=== PATIENT | male | born 1960 | race Caucasian/White ===

== ENCOUNTER 2016-10-17 17:01 | Outpatient (CLI) | payer MEDICARE, OTHER | END 2016-10-17 17:02 | disposition home or self-care (01) | DX: R06.2 Wheezing (principal); R06.02 Shortness of breath ==

== ENCOUNTER 2018-12-18 16:40 | Outpatient (CLI) | payer MEDICARE, OTHER | END 2018-12-18 16:41 | disposition critical access hospital (66) | LOC: EMS 16:40 | PROVIDERS: ATTEND Surgery | DX: R45.851 Suicidal ideations (principal) | CPT/HCPCS: A0425; A0429 ==

== ENCOUNTER 2018-12-18 17:14 | Emergency (ER) | payer MEDICARE, OTHER ==
[2018-12-18 17:29] LABS: BASOPHILS # (AUTO) 0.1 10^3/uL (0.0-0.1); BASOPHILS % (AUTO) 0.7 %; EOSINOPHILS % (AUTO) 0.4 %; HGB - HEMOGLOBIN 15.2 g/dL (14.0-18.0); LYMPHOCYTES # (AUTO) 1.4 10^3/uL (1.5-3.5); LYMPHOCYTES % (AUTO) 19.2 %; MEAN CORPUSCULAR HEMOGLOBIN 30.7 pg (27.0-31.0); MEAN CORPUSCULAR HGB CONC 34.7 g/dL (32.0-36.0); MEAN CORPUSCULAR VOLUME 88.4 fL (80.0-94.0); MEAN PLATELET VOLUME 7.8 fL (7.4-11.4); MONOCYTES # (AUTO) 0.7 10^3/uL (0.0-1.0); MONOCYTES % (AUTO) 9.6 %; NEUTROPHILS # (AUTO) 5.1 10^3/uL (1.5-6.6); NEUTROPHILS % (AUTO) 70.1 %; PLT - PLATELET COUNT 188 10^3/uL (130-450); RED BLOOD COUNT 4.94 10^6/uL (4.70-6.10); RED CELL DISTRIBUTION WIDTH 13.8 % (12.0-15.0); WHITE BLOOD COUNT 7.3 x10^3/uL (4.8-10.8)
[2018-12-18 17:43] LABS: ACETAMINOPHEN < 10 ug/mL (10-30); ALBUMIN 4.4 g/dL (3.2-5.5); ALBUMIN/GLOBULIN RATIO 1.5 (1.0-2.2); ALKALINE PHOSPHATASE 48 IU/L (42-121); ALT ALANINE AMINOTRANSFERASE 24 IU/L (10-60); AST ASPARTATE AMINOTRANSFERASE 34 IU/L (10-42); BUN - BLOOD UREA NITROGEN 9 mg/dL (6-20); CALCIUM 9.7 mg/dL (8.5-10.3); CARBON DIOXIDE - CO2 29 mmol/L (21-32); CHLORIDE 99 mmol/L (101-111); CREATININE 0.9 mg/dL (0.6-1.2); GFR - MDRD 87 (>89); GLUCOSE 96 mg/dL (70-100); LIPASE 32 U/L (22-51); SALICYLATE < 6.0 mg/dL; SODIUM 138 mmol/L (135-145); TOTAL PROTEIN 7.3 g/dL (6.7-8.2)
[2018-12-18 17:45] LABS: MUDS CUTOFF CONCENTRATIONS CUTOFF CONC BELOW:
[2018-12-18 17:46] LABS: BILIRUBIN,URINE NEGATIVE (NEGATIVE); GLUCOSE, URINE (UA) NEGATIVE (NEGATIVE); KETONES,URINE (UA) 15 mg/dL (NEGATIVE); LEUKOCYTE ESTERASE, URINE NEGATIVE (NEGATIVE); NITRITE,URINE NEGATIVE (NEGATIVE); OCCULT BLOOD,URINE NEGATIVE (NEGATIVE); PROTEIN,URINE TRACE mg/dL (NEGATIVE); UROBILINOGEN,URINE 1 (NORMAL) E.U./dL (NORMAL)
[2018-12-18 17:48] LABS: CLARITY,URINE CLEAR (CLEAR)
--- NOTE | 2018-12-18 17:54 | ED Physician Documentation ---
PD HPI MHE - Stated complaint Stated Complaint: SI - Chief complaint Chief Complaint: MHE - History obtained from History obtained from: Patient - History of Present Illness Primary symptom: Suicidal ideation (58-year-old gentleman with paranoid schizophrenia presents from his assisted living facility with paranoia and visual hallucinations. He does not feel safe there. He thinks they are out to get him.) Review of Systems Ten Systems: 10 systems reviewed and negative Constitutional: reports: Reviewed and negative Nose: reports: Reviewed and negative Throat: reports: Reviewed and negative Cardiac: reports: Reviewed and negative PD PAST MEDICAL HISTORY - Past Medical History Past Medical History: Yes Psych: Schizophrenia - Past Surgical History Past Surgical History: No - Present Medications Home Medications: Ambulatory Orders Medication Instructions Recorded Confirmed RX: Valproic Acid 1,000 mg PO BID 03/10/15 03/10/15 RX: Valproic Acid [Depakene] 1,000 mg PO BID #48 capsule 03/10/15 risperiDONE [RisperDAL] 1 mg PO TID 03/10/15 03/10/15 Albuterol Sulfate [Proventil Hfa 1 - 2 puffs INH Q4H PRN 12/18/18 12/18/18 Inhaler] Alfuzosin HCl [Alfuzosin HCl ER] 10 mg PO 12/18/18 Ascorbic Acid [Vitamin C] 500 mg PO 12/18/18 Levothyroxine [Synthroid] 75 mcg PO QDAC 12/18/18 12/18/18 Oxybutynin Chloride [Ditropan Xl] 10 mg PO 12/18/18 RX: Fluoxetine HCl 20 mg PO 12/18/18 RX: Simvastatin 20 mg PO 12/18/18 RX: diazePAM [Diazepam] 5 mg PO 12/18/18 - Allergies Allergies/Adverse Reactions: Allergies Allergy/AdvReac Type Severity Reaction Status Date / Time amoxicillin Allergy Rash Verified 03/10/15 16:21 sertraline Allergy Unknown Unverified 12/18/18 17:16 - Social History Does the pt smoke?: Yes Smoking Status: Current every day smoker Does the pt drink ETOH?: No Does the pt have substance abuse?: No - Family History Family history: reports: Non contributory - Immunizations Immunizations are current?: Yes - POLST Patient has POLST: No PD ED PE NORMAL - Vitals Vital signs reviewed: Yes - General General: Alert and oriented X 3, No acute distress - HEENT HEENT: PERRL, EOMI - Neck Neck: Supple, no meningeal sign, No bony TTP - Cardiac Cardiac: RRR, No murmur - Respiratory Respiratory: No respiratory distress, Other (Rhonchorous throughout) - Abdomen Abdomen: Soft, Non tender - Back Back: No CVA TTP, No spinal TTP - Derm Derm: Normal color, Warm and dry - Extremities Extremities: No deformity, No tenderness to palpate - Neuro Neuro: Alert and oriented X 3, Normal speech - Psych Psych: Other (Some flight of ideas but he is redirectable. He admits to visual hallucinations and some paranoia about jain.) Results - Vitals Vitals: Vital Signs - 24 hr 12/18/18 12/18/18 17:10 21:54 Temperature 36.9 C Heart Rate 67 52 L Respiratory 20 16 Rate Blood Pressure 148/96 H 128/76 O2 Saturation 96 99 Oxygen O2 Source Room air - Labs Labs: Laboratory Tests 12/18/18 12/18/18 12/18/18 17:25 17:25 17:25 WBC 7.3 RBC 4.94 Hgb 15.2 Hct 43.7 MCV 88.4 MCH 30.7 MCHC 34.7 RDW 13.8 Plt Count 188 MPV 7.8 Neut # (Auto) 5.1 Lymph # (Auto) 1.4 L [place] # (Auto) 0.7 Eos # (Auto) 0.0 Baso # (Auto) 0.1 Absolute Nucleated RBC 0.00 Nucleated RBC % 0.0 Sodium 138 Potassium 4.0 Chloride 99 L Carbon Dioxide 29 Anion Gap 10.0 BUN 9 Creatinine 0.9 Estimated GFR (MDRD) 87 L Glucose 96 Calcium 9.7 Total Bilirubin 1.0 AST 34 ALT 24 Alkaline Phosphatase 48 Total Protein 7.3 Albumin 4.4 Globulin 2.9 Albumin/Globulin Ratio 1.5 Lipase 32 TSH 1.11 Urine Color Urine Clarity Urine pH Ur Specific [place] Urine Protein Urine Glucose (UA) Urine Ketones Urine Occult Blood Urine Nitrite Urine Bilirubin Urine Urobilinogen Ur Leukocyte Esterase Ur Microscopic Review Urine Culture Comments Last Dose Date Last Dose Time Salicylates < 6.0 Urine Opiates Screen Ur Oxycodone Screen Urine Methadone Screen Ur Propoxyphene Screen Acetaminophen < 10 L Ur Barbiturates Screen Valproic Acid Ur Tricyclics Screen Ur Phencyclidine Scrn Ur Amphetamine Screen U Methamphetamines Scrn U Benzodiazepines Scrn Urine Cocaine Screen U Cannabinoids Screen Ethyl Alcohol < 5.0 12/18/18 12/18/18 17:25 17:35 WBC RBC Hgb Hct MCV MCH MCHC RDW Plt Count MPV Neut # (Auto) Lymph # (Auto) [place] # (Auto) Eos # (Auto) Baso # (Auto) Absolute Nucleated RBC Nucleated RBC % Sodium Potassium Chloride Carbon Dioxide Anion Gap BUN Creatinine Estimated GFR (MDRD) Glucose Calcium Total Bilirubin AST ALT Alkaline Phosphatase Total Protein Albumin Globulin Albumin/Globulin Ratio Lipase TSH Urine Color YELLOW Urine Clarity CLEAR Urine pH 7.0 Ur Specific [place] 1.015 Urine Protein TRACE Urine Glucose (UA) NEGATIVE Urine Ketones 15 H Urine Occult Blood NEGATIVE Urine Nitrite NEGATIVE Urine Bilirubin NEGATIVE Urine Urobilinogen 1 (NORMAL) Ur Leukocyte Esterase NEGATIVE Ur Microscopic Review NOT INDICATED Urine Culture Comments NOT INDICATED Last Dose Date UNKNOWN Last Dose Time UNKNOWN Salicylates Urine Opiates Screen NEGATIVE Ur Oxycodone Screen NEGATIVE Urine Methadone Screen NEGATIVE Ur Propoxyphene Screen NEGATIVE Acetaminophen Ur Barbiturates Screen NEGATIVE Valproic Acid 55.2 Ur Tricyclics Screen NEGATIVE Ur Phencyclidine Scrn NEGATIVE Ur Amphetamine Screen NEGATIVE U Methamphetamines Scrn NEGATIVE U Benzodiazepines Scrn POSITIVE H Urine Cocaine Screen NEGATIVE U Cannabinoids Screen NEGATIVE Ethyl Alcohol PD MEDICAL DECISION MAKING - ED course ED course: This is a 58-year-old gentleman with history of paranoid schizophrenia seems to be somewhat decompensated and fearful of his current living situation. Seen by social work. They are trying to place him at [facility] for inpatient psychiatric care. He is medically clear for transport to another facility for psychiatric care. Departure - Departure Disposition: 65 Psych Hosp/Unit DC/Xfer Clinical Impression: Schizophrenia Condition: Fair Comments: Jose Guadalupe Cool MD
[2018-12-18 17:58] LABS: AMPHETAMINE SCREEN,URINE NEGATIVE (NEGATIVE); BENZODIAZEPINES SCREEN, URINE POSITIVE (NEGATIVE); COCAINE SCREEN URINE NEGATIVE (NEGATIVE); METHAMPHETAMINES SCREEN, URINE NEGATIVE (NEGATIVE); OPIATE SCREEN, URINE NEGATIVE (NEGATIVE)
[2018-12-18 17:59] LABS: VALPROIC ACID (DEPAKOTE) 55.2 ug/mL
[2018-12-18 17:59] LABS: METHADONE SCREEN, URINE NEGATIVE (NEGATIVE); OXYCODONE SCREEN, URINE NEGATIVE (NEGATIVE); PROPOXYPHENE SCREEN, URINE NEGATIVE (NEGATIVE); TRICYCLIC ANTIDEPRESSANT,URINE NEGATIVE (NEGATIVE)
[2018-12-18 21:55] VITALS: BP 128/76
== END 2018-12-18 23:57 ==
LOC: EDUNIT# → ED 17:14
DX: F20.0 Paranoid schizophrenia (principal); R45.851 Suicidal ideations
CPT/HCPCS: 36415; 80053; 80164; 80306; 80307; 80320; 80329; 81001; 81003; 83690; 84443; 85025; 87086; 99283

== ENCOUNTER 2020-07-24 13:04 | Emergency (ER) | payer MEDICARE, OTHER ==
--- NOTE | 2020-07-24 15:33 | ED Physician Documentation ---
History of Present Illness - Stated complaint Stated Complaint: MED REFILL - Chief complaint Chief Complaint: General - Additonal information Additional information: 59-year-old male who has a history of paranoid schizophrenia presents to the emergency department with his caregiver requesting a refill of his divalproex acid, risperidone and trospium. He has 1 dose of each of these medications left. Due to recent holidays and primary provider vacations they have had a hard time getting the refills completed. Patient denies hallucinations or delusions at this time his caregiver reports that he has been at his baseline health but they were afraid to run out of medications Review of Systems Constitutional: reports: Reviewed and negative Eyes: reports: Reviewed and negative Ears: reports: Reviewed and negative Nose: reports: Reviewed and negative Cardiac: reports: Reviewed and negative Respiratory: reports: Reviewed and negative GI: reports: Reviewed and negative : reports: Reviewed and negative Skin: reports: Reviewed and negative Musculoskeletal: reports: Reviewed and negative PD PAST MEDICAL HISTORY - Past Medical History Past Medical History: No Cardiovascular: High cholesterol Respiratory: None Neuro: Tremors Endocrine/Autoimmune: HyPOthyroidism GI: None : Benign prostate hypertrophy, Incontinence HEENT: None Psych: Schizophrenia Musculoskeletal: None Derm: None - Past Surgical History Past Surgical History: No - Present Medications Home Medications: Ambulatory Orders Medication Instructions Recorded Confirmed Albuterol Sulfate [Proventil Hfa 1 - 2 puffs INH Q6HR PRN 12/18/18 12/18/18 Inhaler] Alfuzosin HCl [Alfuzosin HCl ER] 10 mg PO DAILY 12/18/18 07/24/20 Ascorbic Acid [Vitamin C] 500 mg PO DAILY 12/18/18 07/24/20 Levothyroxine [Synthroid] 75 mcg PO QDAC 12/18/18 07/24/20 diazePAM [Diazepam] 10 mg PO BID PRN 12/18/18 07/24/20 Acetaminophen [Tylenol] 650 mg PO Q4HR PRN 07/24/20 07/24/20 Atorvastatin [Lipitor] 10 mg ORAL HS 07/24/20 07/24/20 Calcium Carbonate [Tums (Calcium 500 mg PO TID PRN 07/24/20 07/24/20 Carbonate 500mg)] Cholecalciferol [Vitamin D3] 25 mcg PO DAILY 07/24/20 07/24/20 Divalproex ER [Depakote ER] 1,250 mg PO BID #280 tablet 07/24/20 Divalproex ER [Depakote ER] 5 tab PO BID 07/24/20 07/24/20 Escitalopram [Lexapro] 20 mg PO DAILY 07/24/20 07/24/20 Tamsulosin HCl [Flomax] 0.4 mg PO DAILY 07/24/20 07/24/20 Trospium Chloride 20 mg PO BID 07/24/20 07/24/20 Trospium Chloride 20 mg PO BID #60 tablet 07/24/20 haloperidoL [Haldol] 5 mg ORAL Q4HR PRN 07/24/20 07/24/20 risperiDONE [Risperdal] 3 mg PO BID 07/24/20 07/24/20 risperiDONE [Risperdal] 3 mg PO BID #60 tablet 07/24/20 traZODone [Desyrel] 50 mg PO HS PRN 07/24/20 07/24/20 - Allergies Allergies/Adverse Reactions: Allergies Allergy/AdvReac Type Severity Reaction Status Date / Time adhesive tape Allergy Rash Verified 07/24/20 13:09 amoxicillin Allergy Rash Verified 03/10/15 16:21 Penicillins Allergy Rash Verified 07/24/20 13:09 sertraline Allergy Unknown Unverified 12/18/18 17:16 - Social History Does the pt smoke?: No Smoking Status: Former smoker Does the pt drink ETOH?: No Does the pt have substance abuse?: No - Immunizations Immunizations are current?: Yes - POLST Patient has POLST: No PD ED PE EXPANDED - General General: Alert, No acute distress, Well developed/nourished - Cardiac Cardiac: Regular Rate, Regular Rhythm, Radial strong equal, Cap refill < 2 sec. No: Regularly irregular - Respiratory Respiratory: Clear to ausultation alan. No: Distress, Labored - Neuro Neuro: Alert and Oriented X 3, CNII-XII intact - Psych Psych: Normal. No: Suicidal, Poor eye contact, Non verbal, Anxious, Agitated Results - Vitals Vitals: Vital Signs - 24 hr 07/24/20 13:09 Temperature 36.9 C Heart Rate 80 Respiratory 18 Rate Blood Pressure 156/71 H O2 Saturation 95 Oxygen O2 Source Room air PD MEDICAL DECISION MAKING - ED course Complexity details: reviewed results, re-evaluated patient, considered differential, d/w patient ED course: 59-year-old male with a history of paranoid schizophrenia presents to the emergency department requesting a refill of his maintenance medications. He has no agitation or confusion at this time. I will write a refill for a limited number of these prescriptions and encourage close follow-up with primary care provider who is in [place]. Departure - Departure Disposition: 01 Home, Self Care Clinical Impression: Medication refill Condition: Stable Record reviewed to determine appropriate education?: Yes Prescriptions: Divalproex ER [Depakote ER] 1,250 mg PO BID #280 tablet risperiDONE [Risperdal] 3 mg PO BID #60 tablet Trospium Chloride 20 mg PO BID #60 tablet Comments: I have refilled the valproic acid, trospium and risperidone. You have 1 month of medication available to you. Please follow-up with primary care provider for future medication refills
[2020-07-24 15:43] VITALS: BP 138/69
== END 2020-07-24 15:47 | disposition home or self-care (01) ==
LOC: ED 13:04
DX: F20.0 Paranoid schizophrenia (principal); Z76.0 Encounter for issue of repeat prescription; Z87.891 Personal history of nicotine dependence
CPT/HCPCS: 99281

== ENCOUNTER 2020-10-09 07:00 | Outpatient (CLI) | payer MEDICARE, OTHER | END 2020-10-09 23:59 | disposition home or self-care (01) | LOC: LAB.R 07:00 | PROVIDERS: ATTEND Physician Assistant Medical | DX: L03.116 Cellulitis of left lower limb (principal) | CPT/HCPCS: 87070; 87205 ==

== ENCOUNTER 2021-10-05 11:50 | Outpatient (CLI) | payer MEDICARE, OTHER ==
[2021-10-05 15:32] LABS: ALBUMIN 3.7 g/dL (3.2-5.5); ALBUMIN/GLOBULIN RATIO 1.2 (1.0-2.2); BILIRUBIN,TOTAL 0.5 mg/dL (0.2-1.0); CALCIUM 9.3 mg/dL (8.5-10.3); CREATININE 0.8 mg/dL (0.6-1.2); POTASSIUM 4.4 mmol/L (3.5-5.0); TOTAL PROTEIN 6.9 g/dL (6.7-8.2)
== END 2021-10-05 11:51 | disposition home or self-care (01) ==
LOC: LAB.S 11:50
PROVIDERS: ATTEND Registered Nurse
DX: R60.9 Edema, unspecified (principal)
CPT/HCPCS: 36415; 80053

== ENCOUNTER 2021-10-30 15:31 | Outpatient (CLI) | payer MEDICARE, OTHER ==
[2021-10-30 20:13] LABS: BASOPHILS # (AUTO) 0.1 10^3/uL (0.0-0.1); BASOPHILS % (AUTO) 0.7 %; EOSINOPHILS # (AUTO) 0.2 10^3/uL (0.0-0.7); EOSINOPHILS % (AUTO) 3.3 %; HCT - HEMATOCRIT 39.8 % (42.0-52.0); LYMPHOCYTES # (AUTO) 2.2 10^3/uL (1.5-3.5); LYMPHOCYTES % (AUTO) 29.7 %; MEAN CORPUSCULAR HEMOGLOBIN 30.4 pg (27.0-31.0); MEAN CORPUSCULAR HGB CONC 32.7 g/dL (32.0-36.0); MEAN PLATELET VOLUME 10.1 fL (7.4-11.4); MONOCYTES % (AUTO) 13.6 %; NEUTROPHILS # (AUTO) 3.9 10^3/uL (1.5-6.6); NEUTROPHILS % (AUTO) 52.2 %; PLT - PLATELET COUNT 182 10^3/uL (130-450); RED BLOOD COUNT 4.28 10^6/uL (4.70-6.10); RED CELL DISTRIBUTION WIDTH 12.5 % (12.0-15.0); WHITE BLOOD COUNT 7.4 x10^3/uL (4.8-10.8)
[2021-10-30 20:24] LABS: ALBUMIN 3.6 g/dL (3.2-5.5); ALBUMIN/GLOBULIN RATIO 1.1 (1.0-2.2); BILIRUBIN,TOTAL 0.8 mg/dL (0.2-1.0); CALCIUM 9.1 mg/dL (8.5-10.3); POTASSIUM 3.8 mmol/L (3.5-5.0); TOTAL PROTEIN 6.9 g/dL (6.7-8.2)
== END 2021-10-30 15:32 | disposition home or self-care (01) ==
LOC: LAB.S 15:31
PROVIDERS: ATTEND Physician Assistant Medical
DX: L03.115 Cellulitis of right lower limb (principal); R60.9 Edema, unspecified
CPT/HCPCS: 36415; 80053; 85025

== ENCOUNTER 2022-08-12 10:37 | Outpatient (CLI) | payer MEDICARE, OTHER ==
--- NOTE | 2022-08-12 13:03 | XRAY Report ---
PROCEDURE: Knee 2 View BILAT INDICATIONS: OSTEOARTHRITIS TECHNIQUE: 2 views of the each knee(s) were acquired. COMPARISON: None. FINDINGS: Bones: No fractures or dislocations. No suspicious bony lesions. [id number] knee joint degeneration, most pronounced in the medial femorotibial compartment and patellofemoral compartment. Soft tissues: Trace knee joint effusion bilaterally. No suspicious soft tissue calcifications. IMPRESSION: [id number] degenerative joint disease in both knees. Reviewed by: Leyda Armas MD on 08/12/2022 1:02 PM PST Approved by: Leyda Armas MD on 08/12/2022 1:02 PM PST Station ID: [id number]
== END 2022-08-12 10:38 | disposition home or self-care (01) ==
LOC: DI 10:37
PROVIDERS: ATTEND Family Medicine
DX: M17.0 Bilateral primary osteoarthritis of knee (principal)

== ENCOUNTER 2022-09-18 09:36 | Outpatient (CLI) | payer MEDICARE, OTHER | END 2022-09-18 23:59 | disposition EMS.NT | LOC: EMS 09:36 | DX: R07.89 Other chest pain (principal) ==

== ENCOUNTER 2024-03-29 09:10 | Outpatient (CLI) | payer MEDICARE, OTHER | END 2024-03-29 09:11 | disposition home or self-care (01) | LOC: DI 09:10 | DX: Z53.9 Procedure and treatment not carried out, unspecified reason (principal) ==